=== PATIENT | female | born 1950 ===

== ENCOUNTER 2020-05-22 06:49 | Day surgery (SDC) | payer OTHER ==
[~2020-05-22 06:49] MED LIST: COZAAR50 MG PO; OMEGA-31000 MG PO; SIMVASTATIN5 MG PO
== END 2020-05-22 20:55 | disposition home or self-care (01) ==
LOC: CIR.AMB 06:49
PROVIDERS: ATTEND Surgery
DX: C50.412 Malignant neoplasm of upper-outer quadrant of left female breast (principal); Z20.828 Contact with and (suspected) exposure to other viral communicable diseases